=== PATIENT | male | born 1935 | race Caucasian/White ===

== ENCOUNTER 2020-06-22 15:53 | Observation (INO) | payer MEDICARE, OTHER ==
[2020-06-22] MEDS ORDERED: Sodium Chloride 0.9% 1,000 ML ONE (16:06)
[2020-06-22] MEDS ORDERED: Sodium Chloride 0.9% 1,000 ML IV ONE ×2 (16:23→17:07)
--- NOTE | 2020-06-22 16:34 | EDM.PDOC ---
ED HPI GENERAL MEDICAL PROBLEM - General Chief Complaint: General Stated Complaint: DIZZINESS,VOMITTING Time Seen by Provider: 06/22/20 16:21 Source of Information: Reports: Patient, Significant Other History Limitations: Reports: No Limitations - History of Present Illness INITIAL COMMENTS - FREE TEXT/NARRATIVE: Patient presents with dizziness for 2-3 days and vomiting twice today. He hasn't had any water to drink today and had only about 3 cups yesterday. Has been in the tractor a lot lately and not drinking much water. - Related Data Allergies Allergy/AdvReac Type Severity Reaction Status Date / Time atorvastatin Allergy Muscle Verified 06/22/20 16:22 Aches ezetimibe Allergy Muscle Verified 06/22/20 16:22 Aches NSAIDS (Non-Steroidal Allergy LIMITS D/T Verified 06/22/20 16:22 Anti-Inflamma RENAL DISEASE Home Meds: Home Meds Aspirin [Halfprin] 81 mg PO DAILY 04/13/15 [History] Omeprazole 20 mg PO ACBREAKFAST 04/13/15 [History] Ramipril [Altace] 10 mg PO DAILY 04/13/15 [History] Cetirizine [ZyrTEC] 10 mg PO DAILY 01/02/17 [History] Ibuprofen [Advil] 2 - 4 tab PO Q4HR PRN 01/02/17 [History] Isosorbide Mononitrate [Isosorbide Mononitrate ER] 30 mg PO DAILY 01/02/17 [History] Potassium Chloride [Klor-Con M10] 10 meq PO DAILY 01/02/17 [History] Clopidogrel [Plavix] 75 mg PO DAILY 06/22/20 [History] Furosemide [Lasix] 40 mg PO DAILY 06/22/20 [History] Metoprolol Succinate [Toprol XL] 12.5 mg PO DAILY 06/22/20 [History] atorvaSTATin [Lipitor] 80 mg PO DAILY 06/22/20 [History] metOLazone [Metolazone] 2.5 mg PO DAILY 06/22/20 [History] Past Medical History HEENT History: Reports: Cataract Cardiovascular History: Reports: High Cholesterol, Hypertension, Stents Gastrointestinal History: Reports: GERD Musculoskeletal History: Reports: Amputation, Arthritis Other Musculoskeletal History: thumb, pointer finger and middle finger amputated Psychiatric History: Reports: Anxiety - Infectious Disease History Infectious Disease History: Reports: Chicken Pox, Shingles - Past Surgical History Cardiovascular Surgical History: Reports: Coronary Artery Stent GI Surgical History: Reports: Colonoscopy Musculoskeletal Surgical History: Reports: Amputation, Knee Replacement, Other (See Below) Other Musculoskeletal Surgeries/Procedures:: multiple fingers amputated Social & Family History - Family History Family Medical History: No Pertinent Family History HEENT: Reports: Cataract Other HEENT Family History: mother Cardiac: Reports: Heart Failure Other Cardiac Family History: father Musculoskeletal: Reports: Gout Other Musculoskeletal Family History: father Neurological: Reports: CVA, Dementia Other Neurological Family History: father had CVA, mother had dementia - Caffeine Use Caffeine Use: Reports: Coffee, Soda, Tea ED ROS GENERAL - Review of Systems Review Of Systems: See Below Constitutional: Denies: Fever, Chills, Malaise, Weakness HEENT: Denies: Ear Pain, Throat Pain, Vision Change Respiratory: Reports: Shortness of Breath (mild), Cough (mild) Cardiovascular: Reports: Lightheadedness. Denies: Chest Pain, Syncope GI/Abdominal: Reports: Vomiting (just today twice). Denies: Abdominal Pain, Diarrhea : Denies: Dysuria, Flank Pain Musculoskeletal: Reports: No Symptoms Skin: Denies: Cyanosis, Jaundice, Mottled, Pallor, Diaphoresis Neurological: Reports: Dizziness. Denies: Confusion, Headache, Seizure, Syncope, Trouble Speaking, Difficulty Walking Psychiatric: Denies: Agitation, Anxiety, Confusion ED EXAM, GENERAL - Physical Exam Exam: See Below Exam Limited By: No Limitations General Appearance: Alert, WD/WN, No Apparent Distress Eye Exam: Bilateral Eye: EOMI, Normal Inspection, PERRL Ears: Normal External Exam, Hearing Grossly Normal Nose: Normal Inspection, No Blood Throat/Mouth: Normal Inspection, Normal Voice, No Airway Compromise Head: Atraumatic, Normocephalic Neck: Normal Inspection, Full Range of Motion Respiratory/Chest: No Respiratory Distress, No Accessory Muscle Use, Crackles (fine in bilat lungs mid to base). No: Rhonchi, Wheezing, Stridor Cardiovascular: Regular Rate, Rhythm, No Murmur GI/Abdominal: Soft, Non-Tender, No Organomegaly, No Distention Back Exam: Normal Inspection, Full Range of Motion. No: CVA Tenderness (L), CVA Tenderness (R) Extremities: Normal Inspection, Normal Range of Motion Neurological: Alert, Oriented, Normal Cognition, No Motor/Sensory Deficits Psychiatric: Normal Affect, Normal Mood Skin Exam: Warm, Dry, Intact, Normal Color, No Rash Course - Vital Signs Last Recorded V/S: Last Vital Signs Temp 96.8 F L 06/22/20 18:00 Pulse 94 06/22/20 18:45 Resp 19 06/22/20 18:45 BP 100/53 L 06/22/20 18:45 Pulse Ox 94 L 06/22/20 18:45 - Orders/Labs/Meds Orders: Active Orders 24 hr Category Date Time Status Patient Status [ADT] Routine ADT 06/22/20 18:46 Ordered EKG Documentation Completion [RC] ASDIRECTED Care 06/22/20 16:23 Active EKG 12 Lead [EK] Stat Ther 06/22/20 16:22 Ordered Labs: Laboratory Tests 06/22/20 06/22/20 06/22/20 Range/Units 16:45 16:45 16:45 WBC 9.48 (5.00-10.00) 10^3/uL RBC 4.40 L (4.50-6.00) 10^6/uL Hgb 14.2 (13.0-17.0) g/dL Hct 42.9 (40.0-52.0) % MCV 97.5 H D (82.0-92.0) fL MCH 32.3 H (27.0-31.0) pg MCHC 33.1 (32.0-36.0) g/dL RDW 14.1 (11.5-14.5) % Plt Count 182 (150-400) 10^3/uL MPV 9.3 (7.4-10.4) fL Sodium 141 (136-145) mmol/L Potassium 4.9 (3.5-5.1) mmol/L Chloride 104 (98-107) mmol/L Carbon Dioxide 26.0 (21.0-32.0) mmol/L Anion Gap 15.9 H (5-15) mmol/L BUN 41 H (7-18) mg/dL Creatinine 2.47 H (0.51-1.17) mg/dL Est Cr Clr Drug Dosing 23.29 mL/min Estimated GFR (MDRD) 25 mL/min Glucose 140 (70-140) mg/dL Lactic Acid (0.4-2.0) mmol/L Calcium 8.8 (8.7-10.3) mg/dL Total Bilirubin 0.7 (0.2-1.0) mg/dL Direct Bilirubin 0.2 (0.0-0.2) mg/dL Indirect Bilirubin 0.5 mg/dL AST 20 (15-37) U/L ALT 19 (14-63) U/L Alkaline Phosphatase 72 (46-116) U/L B-Natriuretic Peptide (0-100) pg/mL Total Protein 7.4 (6.4-8.2) g/dL Albumin 3.55 (3.40-5.00) g/dL Globulin 3.85 Albumin/Globulin Ratio 0.92 SARS CoV-2 RNA Rapid MORENA (NEGATIVE) 06/22/20 06/22/20 06/22/20 Range/Units 16:45 16:45 18:45 WBC (5.00-10.00) 10^3/uL RBC (4.50-6.00) 10^6/uL Hgb (13.0-17.0) g/dL Hct (40.0-52.0) % MCV (82.0-92.0) fL MCH (27.0-31.0) pg MCHC (32.0-36.0) g/dL RDW (11.5-14.5) % Plt Count (150-400) 10^3/uL MPV (7.4-10.4) fL Sodium (136-145) mmol/L Potassium (3.5-5.1) mmol/L Chloride (98-107) mmol/L Carbon Dioxide (21.0-32.0) mmol/L Anion Gap (5-15) mmol/L BUN (7-18) mg/dL Creatinine (0.51-1.17) mg/dL Est Cr Clr Drug Dosing mL/min Estimated GFR (MDRD) mL/min Glucose (70-140) mg/dL Lactic Acid 1.6 (0.4-2.0) mmol/L Calcium (8.7-10.3) mg/dL Total Bilirubin (0.2-1.0) mg/dL Direct Bilirubin (0.0-0.2) mg/dL Indirect Bilirubin mg/dL AST (15-37) U/L ALT (14-63) U/L Alkaline Phosphatase (46-116) U/L B-Natriuretic Peptide 179 H (0-100) pg/mL Total Protein (6.4-8.2) g/dL Albumin (3.40-5.00) g/dL Globulin Albumin/Globulin Ratio SARS CoV-2 RNA Rapid MORENA Negative (NEGATIVE) Meds: Medications Discontinued Medications Generic Name Dose Route Start Last Admin Trade Name Lindsey PRN Reason Stop Dose Admin Sodium Chloride Confirm 06/22/20 16:06 06/22/20 16:23 Normal Saline Administered 06/22/20 16:07 Not Given Dose 1,000 mls @ as directed .ROUTE .STK-MED ONE Sodium Chloride 1,000 mls @ 999 mls/hr 06/22/20 16:23 06/22/20 16:15 Normal Saline IV 06/22/20 17:23 999 mls/hr .BOLUS ONE Administration Sodium Chloride 1,000 mls @ 999 mls/hr 06/22/20 17:07 06/22/20 17:16 Normal Saline IV 06/22/20 18:07 999 mls/hr .BOLUS ONE Administration - Re-Assessments/Exams Free Text/Narrative Re-Assessment/Exam: 06/22/20 17:09 EKG shows NSR without ST elevation. CXR shows mild interstitial pneumonitis but appears chronic compared to CT two months ago. WBC is normal. BP has been low but improving with IV fluids. Dtr-in-law called with concern that pt's has been showing some signs of dementia and may be over-medicating him. He takes Atenolol and Ramipril. Rec ently he was found to be missing doses frequently, due to 's management of his medication. and now they are concerned about the opposite. 06/22/20 18:39 CBC looks good. BUN is 41, Creatinine 2.47, GFR 25. He is feeling a lot better after the two liters of fluids. We got his medications all verified and it sounds likely that his is giving him metalozone everyday before the Lasix instead of only when he has had 3# weight gain as instructed on the bottle. Also metoprolol has evidently replaced Atenolol recently. Discussed findings with patient and recommend hospitalization. He agrees with this. Discussed case with Dr. Jones who accepted for admission to observation. 06/22/20 18:48 Patient is full code status. 06/22/20 18:54 Discharged from ER in stable condition. BP has improved from 70's and 80's systolic to 100-105. Departure - Departure Time of Disposition: 18:52 Disposition: Refer to Observation Condition: Good Clinical Impression: Dehydration Hypotension Qualifiers: Hypotension type: unspecified hypotension type Qualified Code(s): I95.9 - Hypotension, unspecified Acute renal failure Qualifiers: Acute renal failure type: unspecified Qualified Code(s): N17.9 - Acute kidney failure, unspecified - Discharge Information Referrals: Riki Nieves NP [Primary Care Provider] - Forms: ED Department Discharge Sepsis Event Note (ED) - Evaluation Sepsis Screening Result: No Definite Risk - Focused Exam Vital Signs: Vital Signs Temp Pulse Resp BP Pulse Ox 06/22/20 18:45 94 19 100/53 L 94 L 06/22/20 18:30 65 17 104/61 96 06/22/20 18:16 62 18 99/56 L 92 L 06/22/20 18:00 96.8 F L 62 20 103/58 L 97 06/22/20 17:45 62 13 84/45 L 98 06/22/20 17:40 91 L 06/22/20 17:39 89 L 06/22/20 17:31 61 84/44 L 90 L 06/22/20 17:15 63 12 91/43 L 98 06/22/20 17:02 61 83/45 L 06/22/20 17:00 62 17 75/44 L 95 06/22/20 16:45 64 18 81/48 L 93 L 06/22/20 16:42 65 18 90/49 L 95 06/22/20 16:30 65 14 74/45 L 96 06/22/20 16:00 69 18 86/55 L 96 06/22/20 15:53 96.5 F L 68 18 98/54 L 96 - My Orders Last 24 Hours: My Active Orders 06/22/20 16:22 EKG 12 Lead [EK] Stat 06/22/20 16:23 EKG Documentation Completion [RC] ASDIRECTED 06/22/20 18:46 Patient Status [ADT] Routine - Assessment/Plan Last 24 Hours: My Active Orders 06/22/20 16:22 EKG 12 Lead [EK] Stat 06/22/20 16:23 EKG Documentation Completion [RC] ASDIRECTED 06/22/20 18:46 Patient Status [ADT] Routine
--- NOTE | 2020-06-22 16:56 | CR ---
[id number] RAD/RAD Chest PA And Lateral EXAM: RAD Chest PA And Lateral CLINICAL DATA: CRACKLES AT LUNG BASES COMPARISON: CORRELATION IS MADE WITH THE CAT SCAN OF APRIL 20, 2020 FINDINGS: Interstitial lung disease again is seen Based on the CAT scan of April 20 this year, there would be concern for usual interstitial pneumonitis The cardiac silhouette is enlarged but stable IMPRESSION: NO NEW FINDINGS Jae Reynoso MD 06/22/20 [id number] Thank you for allowing us to participate in the care of your patient.
[2020-06-22 17:07] LABS: ANION GAP 15.9 mmol/L (5-15)
[2020-06-22] MEDS ORDERED: Sodium Chloride 0.9% 10 ML Syringe FLUSH PRN (20:57)
[2020-06-23 08:00] LABS: ANION GAP 14.2 mmol/L (5-15)
--- NOTE | 2020-06-23 10:10 | PCM.HP.2 ---
H&P History of Present Illness - General Date of Service: 06/23/20 Admit Problem/Dx: Admission Diagnosis/Problem Admission Diagnosis/Problem Hypotension Source of Information: Patient, Old Records, Provider, RN, Significant Other History Limitations: Reports: Other (EMR from [facility] not available. ) - Related Data Allergies/Adverse Reactions: Allergies Allergy/AdvReac Type Severity Reaction Status Date / Time atorvastatin Allergy Muscle Verified 06/22/20 23:57 Aches ezetimibe Allergy Muscle Verified 06/22/20 23:57 Aches NSAIDS (Non-Steroidal Allergy LIMITS D/T Verified 06/22/20 23:57 Anti-Inflamma RENAL DISEASE Home Medications: Home Meds Aspirin [Halfprin] 81 mg PO DAILY 04/13/15 [History] Cetirizine [ZyrTEC] 10 mg PO DAILY PRN 01/02/17 [History] Isosorbide Mononitrate [Isosorbide Mononitrate ER] 30 mg PO DAILY 01/02/17 [History] Clopidogrel [Plavix] 75 mg PO DAILY 06/22/20 [History] Metoprolol Succinate [Toprol XL] 12.5 mg PO DAILY 06/22/20 [History] atorvaSTATin [Lipitor] 80 mg PO DAILY 06/22/20 [History] Incruse Ellipta 62.5 Mcg 1 puff INH DAILY 06/23/20 [History] Past Medical History HEENT History: Reports: Cataract, Hard of Hearing Cardiovascular History: Reports: High Cholesterol, Hypertension, Stents Respiratory History: Reports: Sleep Apnea Gastrointestinal History: Reports: GERD Musculoskeletal History: Reports: Amputation, Arthritis Other Musculoskeletal History: thumb, pointer finger and middle finger amputated Psychiatric History: Reports: Anxiety - Infectious Disease History Infectious Disease History: Reports: Chicken Pox, Shingles - Past Surgical History Cardiovascular Surgical History: Reports: Coronary Artery Stent Respiratory Surgical History: Reports: None GI Surgical History: Reports: Colonoscopy Musculoskeletal Surgical History: Reports: Amputation, Knee Replacement, Other (See Below) Other Musculoskeletal Surgeries/Procedures:: multiple fingers amputated Social & Family History - Family History Family Medical History: No Pertinent Family History HEENT: Reports: Cataract Other HEENT Family History: mother Cardiac: Reports: Heart Failure Other Cardiac Family History: father Musculoskeletal: Reports: Gout Other Musculoskeletal Family History: father Neurological: Reports: CVA, Dementia Other Neurological Family History: father had CVA, mother had dementia - Tobacco Use Tobacco Use Status *Q: Never Tobacco User - Caffeine Use Caffeine Use: Reports: Coffee - Alcohol Use Days Per Week of Alcohol Use: 2 Number of Drinks Per Day: 1 Total Drinks Per Week: 2 Date of Last Drink: 06/20/20 - Recreational Drug Use Recreational Drug Use: No H&P Review of Systems - Review of Systems: Review Of Systems: See Below General: Reports: Weight Loss HEENT: Reports: No Symptoms Pulmonary: Denies: Shortness of Breath, Cough, Sputum Cardiovascular: Reports: Dyspnea on Exertion, Edema, Blood Pressure Problem. Denies: Chest Pain, Palpitations, Syncope, Claudication Gastrointestinal: Reports: No Symptoms Genitourinary: Reports: No Symptoms Musculoskeletal: Reports: No Symptoms Skin: Reports: Dryness Psychiatric: Denies: Confusion, Agitation Neurological: Denies: Confusion, Syncope, Weakness Hematologic/Lymphatic: Reports: No Symptoms Immunologic: Reports: No Symptoms Exam - Exam Exam: See Below - Vital Signs Vital Signs: Last Vital Signs Temp 97.1 F 06/23/20 06:24 Pulse 59 L 06/23/20 06:24 Resp 18 06/23/20 06:24 BP 114/65 06/23/20 06:24 Pulse Ox 98 06/23/20 06:24 Weight: 194 lb 9 oz - Exam Quality Assessment: Supplemental Oxygen (Off O2 now, ) General: Alert, Oriented, Cooperative. No: Mild Distress Neck: Supple Lungs: Other Cardiovascular: Regular Rate, Regular Rhythm GI/Abdominal Exam: Normal Bowel Sounds, Soft (Male) Exam: Deferred Back Exam: No: CVA Tenderness (L), CVA Tenderness (R) Extremities: Pedal Edema (lower extremities) Skin: Warm, Dry, Intact Neurological: Cranial Nerves Intact Neuro Extensive - Mental Status: Alert, Oriented x3 Neuro Extensive - Motor, Sensory, Reflexes: CN II-XII Intact Psychiatric: Alert, Normal Affect, Normal Mood - Patient Data Lab Results Last 24 hrs: Laboratory Results - last 24 hr 06/22/20 06/22/20 06/22/20 Range/Units 16:45 16:45 16:45 WBC 9.48 (5.00-10.00) 10^3/uL RBC 4.40 L (4.50-6.00) 10^6/uL Hgb 14.2 (13.0-17.0) g/dL Hct 42.9 (40.0-52.0) % MCV 97.5 H D (82.0-92.0) fL MCH 32.3 H (27.0-31.0) pg MCHC 33.1 (32.0-36.0) g/dL RDW 14.1 (11.5-14.5) % Plt Count 182 (150-400) 10^3/uL MPV 9.3 (7.4-10.4) fL Sodium 141 (136-145) mmol/L Potassium 4.9 (3.5-5.1) mmol/L Chloride 104 (98-107) mmol/L Carbon Dioxide 26.0 (21.0-32.0) mmol/L Anion Gap 15.9 H (5-15) mmol/L BUN 41 H (7-18) mg/dL Creatinine 2.47 H (0.51-1.17) mg/dL Est Cr Clr Drug Dosing 23.29 mL/min Estimated GFR (MDRD) 25 mL/min Glucose 140 (70-140) mg/dL Lactic Acid (0.4-2.0) mmol/L Calcium 8.8 (8.7-10.3) mg/dL Total Bilirubin 0.7 (0.2-1.0) mg/dL Direct Bilirubin 0.2 (0.0-0.2) mg/dL Indirect Bilirubin 0.5 mg/dL AST 20 (15-37) U/L ALT 19 (14-63) U/L Alkaline Phosphatase 72 (46-116) U/L B-Natriuretic Peptide (0-100) pg/mL Total Protein 7.4 (6.4-8.2) g/dL Albumin 3.55 (3.40-5.00) g/dL Globulin 3.85 Albumin/Globulin Ratio 0.92 SARS CoV-2 RNA Rapid MORNEA (NEGATIVE) 06/22/20 06/22/20 06/22/20 Range/Units 16:45 16:45 18:45 WBC (5.00-10.00) 10^3/uL RBC (4.50-6.00) 10^6/uL Hgb (13.0-17.0) g/dL Hct (40.0-52.0) % MCV (82.0-92.0) fL MCH (27.0-31.0) pg MCHC (32.0-36.0) g/dL RDW (11.5-14.5) % Plt Count (150-400) 10^3/uL MPV (7.4-10.4) fL Sodium (136-145) mmol/L Potassium (3.5-5.1) mmol/L Chloride (98-107) mmol/L Carbon Dioxide (21.0-32.0) mmol/L Anion Gap (5-15) mmol/L BUN (7-18) mg/dL Creatinine (0.51-1.17) mg/dL Est Cr Clr Drug Dosing mL/min Estimated GFR (MDRD) mL/min Glucose (70-140) mg/dL Lactic Acid 1.6 (0.4-2.0) mmol/L Calcium (8.7-10.3) mg/dL Total Bilirubin (0.2-1.0) mg/dL Direct Bilirubin (0.0-0.2) mg/dL Indirect Bilirubin mg/dL AST (15-37) U/L ALT (14-63) U/L Alkaline Phosphatase (46-116) U/L B-Natriuretic Peptide 179 H (0-100) pg/mL Total Protein (6.4-8.2) g/dL Albumin (3.40-5.00) g/dL Globulin Albumin/Globulin Ratio SARS CoV-2 RNA Rapid MORENA Negative (NEGATIVE) 06/23/20 Range/Units 07:30 WBC (5.00-10.00) 10^3/uL RBC (4.50-6.00) 10^6/uL Hgb (13.0-17.0) g/dL Hct (40.0-52.0) % MCV (82.0-92.0) fL MCH (27.0-31.0) pg MCHC (32.0-36.0) g/dL RDW (11.5-14.5) % Plt Count (150-400) 10^3/uL MPV (7.4-10.4) fL Sodium 143 (136-145) mmol/L Potassium 4.7 (3.5-5.1) mmol/L Chloride 105 (98-107) mmol/L Carbon Dioxide 28.5 (21.0-32.0) mmol/L Anion Gap 14.2 (5-15) mmol/L BUN 42 H (7-18) mg/dL Creatinine 2.32 H (0.51-1.17) mg/dL Est Cr Clr Drug Dosing 24.79 mL/min Estimated GFR (MDRD) 27 mL/min Glucose 96 (70-140) mg/dL Lactic Acid (0.4-2.0) mmol/L Calcium 8.4 L (8.7-10.3) mg/dL Total Bilirubin (0.2-1.0) mg/dL Direct Bilirubin (0.0-0.2) mg/dL Indirect Bilirubin mg/dL AST (15-37) U/L ALT (14-63) U/L Alkaline Phosphatase (46-116) U/L B-Natriuretic Peptide (0-100) pg/mL Total Protein (6.4-8.2) g/dL Albumin (3.40-5.00) g/dL Globulin Albumin/Globulin Ratio SARS CoV-2 RNA Rapid MORENA (NEGATIVE) Result Diagrams: 06/22/20 16:45 06/24/20 07:35 Sepsis Event Note - Evaluation Sepsis Screening Result: No Definite Risk - Focused Exam Vital Signs: Vital Signs Temp Pulse Resp BP Pulse Ox 06/23/20 06:24 97.1 F 59 L 18 114/65 98 06/23/20 03:00 97.0 F 61 18 112/66 98 06/22/20 23:04 96.7 F L 56 L 20 100/55 L 100 Problem List Initiated/Reviewed/Updated: Yes Orders Last 24hrs: Active Orders 24 hr Category Date Time Status Patient Status [ADT] Routine ADT 06/22/20 18:46 Active Height and Weight [RC] DAILY Care 06/22/20 20:57 Active Intake and Output [RC] 06,14,22 Care 06/22/20 20:58 Active Oxygen Therapy [RC] DAILY Care 06/22/20 20:57 Active Peripheral IV Care [RC] 09,21 Care 06/22/20 21:01 Active Up With Assistance [RC] DAILY Care 06/22/20 20:57 Active VTE/DVT Education [RC] DAILY Care 06/22/20 20:57 Active Vital Signs [RC] 03,07,11,15,19,23 Care 06/22/20 20:57 Active Consult to Case Management/Associate Professor [employer] Forest[employer] [CONS] Cons 06/22/20 20:57 Active Routine Heart Healthy Diet [DIET] Diet 06/23/20 Breakfast Active Sodium Chloride 0.9% [Saline Flush] Med 06/22/20 20:57 Active 10 ml FLUSH Q8HR PRN Peripheral IV Insertion Adult [OM.PC] Routine Oth 06/22/20 20:57 Ordered Saline Lock Insert [OM.PC] Routine Oth 06/22/20 20:57 Ordered Resuscitation Status Routine Resus Stat 06/22/20 20:57 Ordered EKG 12 Lead [EK] Stat Ther 06/22/20 16:22 Ordered Medication Orders Sodium Chloride (Sodium Chloride 0.9% 10 Ml Syringe) 10 ml FLUSH Q8HR PRN PRN Reason: keep vein open Assessment/Plan Comment:: History of present illness Mr Mead is a 85-year-old pleasant gentleman that was admitted into OBS status likely due to med induced SCOTTIE dehydration Reported to the ED complaining of 2-3 of dizziness with dry heaving--hitting he had not been drinking enough water and 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 Only doctors in [facility] in [place], [place]. Although do not have those records with me family/patient reports recent hospitalization approximately 6-weeks ago due to shortness of breath determined to be PVD and had stent placed. Family admits some medication adjustments since this recent hospitalization however some confusion regarding missing pills especially of Metolazone. Patient is to be on Lasix 40 mg p.o. daily along with PRN metaxalone however family highly suspects that the spouse (who has mild dementia) has been given Metolazone on a daily basis. Patient does have history of heart failure and admits to not weighing himself. ED Course/pertinent findings VS: SBP: 70-80's, afebrile HR, 60's, POX 96% BUN/creatinine 41/2.47 (04/27/2020 [facility]: ) Cxr: Interstitial lung disease, appears chronic BNP 180 2 liters isotonic saline Hospital course 06/23/2020; On rounds this morning, patient sitting in chair off of oxygen, no acute distress, family in room, blood pressure improved, no JVD, no shortness of breath, fibrotic crackles without fluid overload, no JVD, 1+ pitting edema lower extremities, tolerating p.o. fluids, IV fluids saline locked throughout the night. Marginal improvement in renal indices--remains ~50% above baseline Primary Hospital problems --SCOTTIE prerenal, acute on chronic due to decreased p.o. intake, medication ind uced Chronic/stable problems CAD, PVD, HTN, HLD. Recent stent lower extremity, ASA, clopidogrel, Statin, HOLD ACEI, metoprolol and diuretics Pulmonary Fibrosis, PPI; Rx to determine if patient taking Incruse GERD, PPI Disposition/overall plan --Hold both Lasix and metaxalone today --Increase p.o. fluids, encourage --Suggest [place] nurse to monitor medication compliance. --ERIC greg Elliott Records on chart today --Educate patient/family on avoiding NSAIDS --Anticpate discharge in a.m. - Mortality Measure Prognosis:: Good
[2020-06-23] MEDS: ATORVASTATIN 80 MG PO SCH (10:53)
[2020-06-23] MEDS: Omeprazole 20 MG Cap.CR - PTOM PO SCH (10:53)
[2020-06-23] MEDS: ISOSORBIDE MONONITRATE 30 MG PO SCH (10:53)
[2020-06-23] MEDS: Clopidogrel 75 MG Tab - PTOM PO SCH (10:56)
[2020-06-23] MEDS: Aspirin 81 MG Tab.EC PO SCH (11:00)
[2020-06-24] MEDS: Omeprazole 20 MG Cap.CR - PTOM PO SCH (06:33)
[2020-06-24 08:07] LABS: ANION GAP 13.9 mmol/L (5-15)
[2020-06-24] MEDS: ISOSORBIDE MONONITRATE 30 MG PO SCH (08:29)
[2020-06-24] MEDS: Clopidogrel 75 MG Tab - PTOM PO SCH (08:29)
[2020-06-24] MEDS: Aspirin 81 MG Tab.EC PO SCH (08:29)
[2020-06-24] MEDS: ATORVASTATIN 80 MG PO SCH (08:29)
[2020-06-24 08:33] VITALS: BP 116/81; PULSE 79
--- NOTE | 2020-06-24 09:52 | PCM.DCSUM1 ---
Discharge Summary - Hospital Course Free Text/Narrative:: Date of admission: 06/22/20 Date of discharge: 06/24/20 Admission diagnoses: # SCOTTIE prerenal, acute on chronic due to decreased p.o. intake, medication induced; improved. Discharge diagnoses: # Coronary artery disease - Cardiac cath with JENNA placed to LAD on 04/22/20 at [facility] in [place], [place]; continue ASA, metoprolol 12.5mg PO BID, plavix 75mg PO daily, Imdur 30mg PO daily. # NSTEMI (type 1) - 04/20/20 (Trop 0.04) # HFpEF - EF 55-60% with grade 1-2 diastolic dysfunction per echo 04/21/20 at [facility]; hold lasix, supplemental potassium until follow-up on 06/26/20. Stopped metolazone at discharge from [facility] due to SCOTTIE, dehydration. # Hypertension - Hold ALPESH inhibitor until follow-up on 06/26/20. # Hyperlipidemia - Continue atorvastatin 80mg PO daily. # Chronic kidney disease stage III. Baseline creatinine 1.3-1.5. # Carotid artery disease - R carotid endartectomy 03/09/18. # Mild dilatation of the aortic root; mild dilatation of the ascending aorta. Ascending aorta measured 3.8-4.0cm by echo on 10/24/16. # Mitral valve prolapse # Interstitial pulmonary fibrosis # Hx of TIA # Diverticulosis # Chronic dyspepsia HPI summary: Mr Mead is a 85-year-old pleasant gentleman that was admitted into OBS status likely due to med induced SCOTTIE dehydration. Reported to the ED complaining of 2-3 of dizziness with dry heaving. 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 Patient was last seen by [facility] providers in February,, had been seen more recently by Dr Ochoa in [place] at [facility]. Recent hospitalization records obtained from [facility] indicate that patient was recently hospitalized April 20-2020 for HFpEF exacerbation with BNP of 1010, elevated troponin of 0.04. Patient was taken to geophysical laboratory director with a JENNA placed to the LAD. Patient had medication changes at that time to include: stopping atenolol and changing this to metoprolol 12.5mg PO daily; aspirin 81mg PO daily, plavix 75mg PO daily, atorvastatin 80mg PO HS, Isosorbide 30mg PO daily, lasix 20mg PO daily (patient was to take 1/2 tablet of 40mg dose which he reportedly had at home) along with potassium supplementation of 10 Meq PO daily, metolazone 2.5mg which was to be taken 30 minutes prior to lasix if he had a 3 pound weight gain in one day or a five pound weight gain in a week, as well as continuing his ALPESH inhibitor of ramipril. Family had reported at time of presentation to [facility] that they suspected confusion regarding medications and current dosages, particularly as related to diuretic dosing which was thought to be Lasix 40 mg daily along with PRN metaxalone,however family highly suspected that the spouse (who has mild dementia) has been given Metolazone on a daily basis. Patient had reported that he had not been weighing himself daily as recommended. ED course: VS: SBP: 70-80's, afebrile HR, 60's, O2 sat 96% Elevation of BUN/creatinine from baseline. BUN 41, creatinine 2.47. (04/27/2020 [facility]: ) CXR: Interstitial lung disease, appears chronic BNP 180, hx of HFpEF 2 liters isotonic saline were given with improvement in blood pressure. Hospital course: 06/23/2020: On rounds patient sitting in chair off of oxygen, no acute distress, family in room, blood pressure improved, no JVD, no shortness of breath, fibrotic crackles without fluid overload, no JVD, 1+ pitting edema lower extremities, tolerating oral fluids, IV fluids saline locked throughout the night. Marginal improvement in renal indices--remained ~50% above baseline. 06/24/20: Patient reports mild exertional SOB, no other complaints. Renal function improved this morning, BUN 41, Creatinine 1.69. Vitals stable BP 116/81, HR 79, T 97F, 94% on room air. Planning for discharge home today with [facility] support to manage medications, monitor weight and vitals. Discharge and follow-up recommendations: - Discharge to Home per self care. [facility] to monitor patient weights, vitals, and manage medications to ensure compliance with current recommended regimen. - New medications at discharge: No new medications. Stop Metolazone. Avoid NS AIDs. Hold lasix, potassium supplement, ALPESH inhibitor until follow-up appointment. - Follow-up in [facility] per myself on June 26. - Discharge Data Discharge Disposition: Home, Self-Care 01 Condition: Good - Referral to Home Health Primary Care Physician: Riki Nieves NP - Patient Summary/Data Consults: Consultations 06/22/20 20:57 Consult to Case Management/Game Breeding Farm Manager [CONS] Routine - Discharge Plan Home Medications: Home Meds Aspirin [Halfprin] 81 mg PO DAILY 04/13/15 [History] Cetirizine [ZyrTEC] 10 mg PO DAILY PRN 01/02/17 [History] Isosorbide Mononitrate [Isosorbide Mononitrate ER] 30 mg PO DAILY 01/02/17 [History] Clopidogrel [Plavix] 75 mg PO DAILY 06/22/20 [History] Metoprolol Succinate [Toprol XL] 12.5 mg PO DAILY 06/22/20 [History] atorvaSTATin [Lipitor] 80 mg PO DAILY 06/22/20 [History] Incruse Ellipta 62.5 Mcg 1 puff INH DAILY 06/23/20 [History] Referrals: Annika Rodriguez, CREATIVE PROJECT MANAGER [Nurse Practitioner] - 06/26/20 1:30 pm (Follow-up on Monday06/26/20 in the afternoon at the [facility]. ) - General Info Date of Service: 06/24/20 Functional Status: Reports: Pain Controlled, Tolerating Diet, Urinating. Denies: New Symptoms - Review of Systems General: Reports: No Symptoms HEENT: Reports: No Symptoms. Denies: Headaches, Sore Throat Pulmonary: Reports: Shortness of Breath (mild with exertion). Denies: Cough, Wheezing Cardiovascular: Reports: Edema (non-pitting edema BLE). Denies: Chest Pain, Palpitations Gastrointestinal: Reports: No Symptoms. Denies: Abdominal Pain, Constipation, Decreased Appetite, Diarrhea Genitourinary: Reports: No Symptoms Musculoskeletal: Reports: No Symptoms Skin: Reports: No Symptoms Neurological: Reports: No Symptoms Psychiatric: Reports: No Symptoms - Patient Data Vitals - Most Recent: Last Vital Signs Temp 97.0 F 06/24/20 06:45 Pulse 79 06/24/20 08:32 Resp 16 06/24/20 06:45 BP 116/81 04/28/21 08:32 Pulse Ox 94 L 06/24/20 08:34 Weight - Most Recent: 195 lb 6 oz I&O - Last 24 hours: Intake & Output 06/23/20 06/24/20 06/24/20 22:59 06:59 14:59 Intake Total 350 100 Output Total 400 900 Balance -50 -800 Lab Results - Last 24 hrs: Laboratory Results - last 24 hr 06/24/20 Range/Units 07:35 Sodium 140 (136-145) mmol/L Potassium 4.6 (3.5-5.1) mmol/L Chloride 104 (98-107) mmol/L Carbon Dioxide 26.7 (21.0-32.0) mmol/L Anion Gap 13.9 (5-15) mmol/L BUN 41 H (7-18) mg/dL Creatinine 1.69 H (0.51-1.17) mg/dL Est Cr Clr Drug Dosing 34.04 mL/min Estimated GFR (MDRD) 39 mL/min Glucose 94 (70-140) mg/dL Calcium 8.2 L (8.7-10.3) mg/dL Med Orders - Current: Current Medications Aspirin (Aspirin 81 Mg Tab.Ec) 81 mg PO DAILY [facility] Last Admin: 06/24/20 08:29 Dose: 81 mg Documented by: Clopidogrel Bisulfate (Clopidogrel 75 Mg Tab - Ptom) 75 mg PO DAILY [facility] Last Admin: 06/24/20 08:29 Dose: 75 mg Documented by: Atorvastatin [ Lipitor] 80 Mg Tablet - Ptom 80 mg PO DAILY [facility] Last Admin: 06/24/20 08:29 Dose: 80 mg Documented by: Isosorbide Mononitrate Er 30 Mg Tablet - Ptom 30 mg PO DAILY [facility] Last Admin: 06/24/20 08:29 Dose: 30 mg Documented by: Omeprazole (Omeprazole 20 Mg Cap.Cr - Ptom) 20 mg PO ACBREAKFAST [facility] Last Admin: 06/24/20 06:33 Dose: 20 mg Documented by: Sodium Chloride (Sodium Chloride 0.9% 10 Ml Syringe) 10 ml FLUSH Q8HR PRN PRN Reason: keep vein open Tiotropium [place] (Tiotropium [place] 4 Gm Inhalation [place] (2.5mcg/1 Dose; 10 Doses)) 0 gm INH DAILY@1999 [facility] Discontinued Medications Sodium Chloride (Normal Saline) Confirm Administered Dose 1,000 mls @ as directed .ROUTE .STK-MED ONE Stop: 06/22/20 16:07 Last Admin: 06/22/20 16:23 Dose: Not Given Documented by: Sodium Chloride (Normal Saline) 1,000 mls @ 999 mls/hr IV .BOLUS ONE Stop: 06/22/20 17:23 Last Admin: 06/22/20 16:15 Dose: 999 mls/hr Documented by: Sodium Chloride (Normal Saline) 1,000 mls @ 999 mls/hr IV .BOLUS ONE Stop: 06/22/20 18:07 Last Admin: 06/22/20 17:16 Dose: 999 mls/hr Documented by: - Exam Quality Assessment: Denies: Supplemental Oxygen General: Reports: Alert, Oriented, Cooperative HEENT: Reports: Pupils Equal, Mucous Membr. Moist/[place] Neck: Reports: Supple, No JVD Lungs: Reports: Clear to Auscultation, Normal Respiratory Effort. Denies: Decreased Breath Sounds, Crackles, Wheezing Cardiovascular: Reports: Regular Rate, Regular Rhythm, No Murmurs GI/Abdominal Exam: Normal Bowel Sounds, Soft, Non-Tender, No Distention (Male) Exam: Deferred Rectal (Males) Exam: Deferred Extremities: Normal Inspection, Normal Range of Motion Skin: Reports: Warm, Dry, Intact Neurological: Reports: No New Focal Deficit, Normal Speech Psy/Mental Status: Reports: Alert, Normal Affect, Normal Mood
[2020-06-24] MEDS ORDERED: Tiotropium Bromide 4 GM Inhalation Spray (2.5mcg/1 dose; 10 doses) INH SCH (20:00)
== END 2020-06-24 10:50 | disposition home or self-care (01) ==
LOC: KA.ED 15:53 → UNDOADMOB 18:46 → KA.MS 18:46 → UNDODISOB 06-24 10:50
PROVIDERS: ADMIT Family Medicine; ATTEND Family Medicine
DX: R42 Dizziness and giddiness (principal); R11.10 Vomiting, unspecified; I95.9 Hypotension, unspecified; E78.00 Pure hypercholesterolemia, unspecified; K21.9 Gastro-esophageal reflux disease without esophagitis; I25.10 Atherosclerotic heart disease of native coronary artery without angina pectoris; I73.9 Peripheral vascular disease, unspecified; E78.5 Hyperlipidemia, unspecified; J84.10 Pulmonary fibrosis, unspecified; I25.2 Old myocardial infarction; K57.30 Diverticulosis of large intestine without perforation or abscess without bleeding; I50.30 Unspecified diastolic (congestive) heart failure; I13.0 Hypertensive heart and chronic kidney disease with heart failure and stage 1 through stage 4 chronic kidney disease, or unspecified chronic kidney disease; Z20.822 Contact with and (suspected) exposure to COVID-19; N18.30 Chronic kidney disease, stage 3 unspecified; Z95.5 Presence of coronary angioplasty implant and graft; Z86.73 Personal history of transient ischemic attack (TIA), and cerebral infarction without residual deficits; Z88.8 Allergy status to other drugs, medicaments and biological substances; Z79.82 Long term (current) use of aspirin; Z98.890 Other specified postprocedural states; Z79.899 Other long term (current) drug therapy
CPT/HCPCS: 36415; 71046; 80048; 80076; 83605; 83880; 85027; 93005; 99284; 99285-25; A9270-GY; G0378; J7030; U0002

== ENCOUNTER 2022-02-23 08:03 | Observation (INO) | payer MEDICARE, OTHER ==
[2022-02-23] MEDS ORDERED: Sodium Chloride 0.9% 10 ML Syringe FLUSH PRN (08:36)
[2022-02-23] MEDS ORDERED: HYDROmorphone 1 MG/ML Syringe IVPUSH ONE (08:52)
[2022-02-23] MEDS ORDERED: Sodium Chloride 0.9% 1,000 ML IV ONE (08:52)
[2022-02-23] MEDS ORDERED: Ondansetron 4 MG/2 ML SDV IVPUSH ONE (08:52)
[2022-02-23 09:23] LABS: ANION GAP 16.5 mmol/L (5-15)
[2022-02-23] MEDS: Sodium Chloride 0.9% 1,000 ML IV SCH (12:18)
[2022-02-23] MEDS ORDERED: HYDROmorphone 1 MG/ML Syringe IVPUSH PRN (17:45)
[2022-02-23 18:07] LABS: ANION GAP 13.1 mmol/L (5-15)
[2022-02-23] MEDS: Metoprolol Succinate 25 MG Tab.ER PO SCH (18:15)
[2022-02-23] MEDS: Heparin Sodium 5,000 Units/ML Vial SUBCUT SCH (18:15)
[2022-02-23 18:17] LABS: PTT,PARTIAL THROMBOPLSTIN TIME 27.9 SEC (22.8-31.4)
[2022-02-24] MEDS: Heparin Sodium 5,000 Units/ML Vial SUBCUT SCH ×3 (01:13→17:55)
[2022-02-24 07:24] LABS: ANION GAP 11.4 mmol/L (5-15)
[2022-02-24] MEDS ORDERED: Pantoprazole 20 MG Tab, Delayed Release PO SCH (07:30)
[2022-02-24] MEDS: INCRUSE ELLIPTA 62.5 MCG INH SCH (08:50)
[2022-02-24] MEDS: Sodium Chloride 0.9% 1,000 ML IV SCH ×2 (08:57→22:40)
[2022-02-24] MEDS ORDERED: Isosorbide Mononitrate 30 MG Tab.ER PO SCH (09:00)
[2022-02-24] MEDS ORDERED: ISOSORBIDE MONONITRATE 30 MG PO SCH (10:46)
[2022-02-24] MEDS ORDERED: PANTOPRAZOLE 20 MG PO SCH (10:48)
[2022-02-24] MEDS: Metoprolol Succinate 25 MG Tab.ER PO SCH (11:02)
[2022-02-24] MEDS: METOPROLOL SUCCINATE 25 MG PO SCH (11:11)
[2022-02-24] MEDS ORDERED: Melatonin 3 MG Tab PO SCH (21:00)
[2022-02-25] MEDS: Heparin Sodium 5,000 Units/ML Vial SUBCUT SCH ×2 (02:28→11:04)
[2022-02-25 07:43] LABS: ANION GAP 8.3 mmol/L (5-15)
[2022-02-25 11:02] VITALS: BP 136/70; PULSE 81
[2022-02-25] MEDS: METOPROLOL SUCCINATE 25 MG PO SCH (11:03)
[2022-02-25] MEDS: INCRUSE ELLIPTA 62.5 MCG INH SCH (11:04)
== END 2022-02-25 12:50 ==
LOC: KA.ED 08:03 → UNDOADMIN 11:11 → KA.MS 11:11 → INTOOBSV 11:13
PROVIDERS: ADMIT Family Medicine; ATTEND Family Medicine
DX: S72.012A Unspecified intracapsular fracture of left femur, initial encounter for closed fracture (principal); J96.01 Acute respiratory failure with hypoxia; I13.0 Hypertensive heart and chronic kidney disease with heart failure and stage 1 through stage 4 chronic kidney disease, or unspecified chronic kidney disease; N18.31 Chronic kidney disease, stage 3a; I50.9 Heart failure, unspecified; J84.10 Pulmonary fibrosis, unspecified; I48.91 Unspecified atrial fibrillation; M62.82 Rhabdomyolysis; N17.9 Acute kidney failure, unspecified; E87.20 Acidosis, unspecified; E80.6 Other disorders of bilirubin metabolism; D69.6 Thrombocytopenia, unspecified; G31.84 Mild cognitive impairment of uncertain or unknown etiology; K21.9 Gastro-esophageal reflux disease without esophagitis; E78.5 Hyperlipidemia, unspecified; F32.A Depression, unspecified; M19.90 Unspecified osteoarthritis, unspecified site; I25.10 Atherosclerotic heart disease of native coronary artery without angina pectoris; I73.9 Peripheral vascular disease, unspecified; F41.9 Anxiety disorder, unspecified; K80.20 Calculus of gallbladder without cholecystitis without obstruction; Z86.73 Personal history of transient ischemic attack (TIA), and cerebral infarction without residual deficits; Z79.899 Other long term (current) drug therapy; Z79.82 Long term (current) use of aspirin; Z88.6 Allergy status to analgesic agent; Z95.5 Presence of coronary angioplasty implant and graft; Z96.659 Presence of unspecified artificial knee joint; Z88.8 Allergy status to other drugs, medicaments and biological substances
CPT/HCPCS: 36415; 51702; 70450; 71045; 73502; 74176; 80053; 81001; 82550; 83605; 83735; 83880; 84443; 84484; 84550; 85025; 85610; 85730; 93005; 96361; 96374; 96375; 99285; A9270; J1170; J1644; J2405; J7030; 96376; G0378

== ENCOUNTER 2022-03-16 20:15 | Inpatient (IN) | payer MEDICARE, OTHER ==
[2022-03-16] MEDS ORDERED: Sodium Chloride 0.9% 1,000 ML ONE (20:42)
[2022-03-16] MEDS ORDERED: Sodium Chloride 0.9% 1,000 ML IV ONE (20:51)
[2022-03-16] MEDS ORDERED: Sodium Chloride 0.9% 10 ML Syringe FLUSH PRN (20:51)
[2022-03-16 21:14] LABS: ANION GAP 12.3 mmol/L (5-15); CHLORIDE,CL 100 mmol/L (98-107); SODIUM,NA 135 mmol/L (136-145)
[2022-03-16] MEDS ORDERED: Piperacillin/Tazobactam 4.5 GM in Sodium Chloride 0.9% 100 ML IV ONE (21:28)
[2022-03-16 21:30] LABS: ESTIMATED GFR 61 mL/min (>=60)
[2022-03-16] MEDS: Sodium Chloride 0.9% 1,000 ML IV SCH (21:45)
[2022-03-16 22:04] LABS: RESPIRATORY SYNCYTIAL VIR NAA NEGATIVE (NEGATIVE)
[2022-03-16 22:06] LABS: CORONAVIRUS COVID-19 NAA NEGATIVE (NEGATIVE)
[2022-03-16] MEDS ORDERED: Acetaminophen 325 MG Tab PO PRN (22:19)
[2022-03-16] MEDS ORDERED: Ondansetron 4 MG Tab.DIS PO PRN (22:19)
[2022-03-16] MEDS ORDERED: Albuterol/Ipratropium 3.0-0.5 MG/3 ML Neb Soln NEB PRN (22:21)
[2022-03-17] MEDS: Piperacillin/Tazobactam 4.5 GM in Sodium Chloride 0.9% 100 ML IV SCH ×3 (06:03→23:49)
[2022-03-17 07:36] LABS: ANION GAP 10.1 mmol/L (5-15)
[2022-03-17] MEDS: Sodium Chloride 0.9% 1,000 ML IV SCH (09:36)
[2022-03-17] MEDS ORDERED: Docusate Sodium 100 MG Cap PO PRN (10:17)
[2022-03-17] MEDS ORDERED: Albuterol 8 GM Inhaler INH PRN (10:17)
[2022-03-17] MEDS ORDERED: Acetaminophen 500 MG Tab PO PRN (10:17)
[2022-03-17] MEDS: Isosorbide Mononitrate 30 MG Tab.ER PO SCH (10:42)
[2022-03-17] MEDS: Tiotropium Bromide 4 GM Inhalation Spray (2.5mcg/1 dose; 10 doses) INH SCH (10:54)
[2022-03-17] MEDS: Apixaban 5 MG Tab PO SCH ×2 (11:18→20:42)
[2022-03-17] MEDS: Clopidogrel 75 MG Tab PO SCH (11:18)
[2022-03-17] MEDS: atorvaSTATin 40 MG Tab PO SCH (20:43)
[2022-03-18] MEDS: Piperacillin/Tazobactam 4.5 GM in Sodium Chloride 0.9% 100 ML IV SCH ×3 (06:27→22:11)
[2022-03-18] MEDS ORDERED: Furosemide 40 MG/4 ML VIAL IVPUSH ONE ×2 (08:19→15:00)
[2022-03-18] MEDS: Pantoprazole 20 MG Tab, Delayed Release PO SCH (08:36)
[2022-03-18] MEDS: Apixaban 5 MG Tab PO SCH ×2 (08:36→21:43)
[2022-03-18] MEDS: Clopidogrel 75 MG Tab PO SCH (08:36)
[2022-03-18] MEDS: Tiotropium Bromide 4 GM Inhalation Spray (2.5mcg/1 dose; 10 doses) INH SCH (09:32)
[2022-03-18] MEDS: Metoprolol Succinate 50 MG Tab.ER PO SCH ×3 (11:39→21:42)
[2022-03-18] MEDS: Isosorbide Mononitrate 30 MG Tab.ER PO SCH (12:09)
[2022-03-18] MEDS: atorvaSTATin 40 MG Tab PO SCH (21:43)
[2022-03-19] MEDS: Piperacillin/Tazobactam 4.5 GM in Sodium Chloride 0.9% 100 ML IV SCH ×4 (06:22→22:31)
[2022-03-19] MEDS: Apixaban 5 MG Tab PO SCH ×2 (08:50→21:46)
[2022-03-19] MEDS: Clopidogrel 75 MG Tab PO SCH (08:50)
[2022-03-19] MEDS: Metoprolol Succinate 50 MG Tab.ER PO SCH (08:52)
[2022-03-19] MEDS: Pantoprazole 20 MG Tab, Delayed Release PO SCH (08:52)
[2022-03-19] MEDS: Isosorbide Mononitrate 30 MG Tab.ER PO SCH (08:52)
[2022-03-19] MEDS: Tiotropium Bromide 4 GM Inhalation Spray (2.5mcg/1 dose; 10 doses) INH SCH (08:56)
[2022-03-19] MEDS ORDERED: Sodium Chloride 0.9% 100 ML IV SCH (21:15)
[2022-03-19] MEDS: atorvaSTATin 40 MG Tab PO SCH (21:46)
[2022-03-20] MEDS: Piperacillin/Tazobactam 4.5 GM in Sodium Chloride 0.9% 100 ML IV SCH (05:59)
[2022-03-20] MEDS: Apixaban 5 MG Tab PO SCH (08:06)
[2022-03-20] MEDS: Clopidogrel 75 MG Tab PO SCH (08:06)
[2022-03-20] MEDS: Pantoprazole 20 MG Tab, Delayed Release PO SCH (08:06)
[2022-03-20] MEDS: Tiotropium Bromide 4 GM Inhalation Spray (2.5mcg/1 dose; 10 doses) INH SCH (08:50)
[2022-03-20] MEDS: Isosorbide Mononitrate 30 MG Tab.ER PO SCH (08:50)
[2022-03-20 12:04] VITALS: BP 109/64; PULSE 71
== END 2022-03-20 13:08 | DRG 194 ==
LOC: KA.ED 20:15 → KA.MS 22:17 → UNDOADMIN 22:20
PROVIDERS: ADMIT Physician Assistant Medical; ATTEND Nurse Practitioner Family
DX: J18.9 Pneumonia, unspecified organism (principal); I13.0 Hypertensive heart and chronic kidney disease with heart failure and stage 1 through stage 4 chronic kidney disease, or unspecified chronic kidney disease; I50.32 Chronic diastolic (congestive) heart failure; I25.10 Atherosclerotic heart disease of native coronary artery without angina pectoris; E78.5 Hyperlipidemia, unspecified; J84.10 Pulmonary fibrosis, unspecified; N18.30 Chronic kidney disease, stage 3 unspecified; Z66 Do not resuscitate; I95.9 Hypotension, unspecified; R33.9 Retention of urine, unspecified; H91.90 Unspecified hearing loss, unspecified ear; I48.91 Unspecified atrial fibrillation; E78.00 Pure hypercholesterolemia, unspecified; J44.9 Chronic obstructive pulmonary disease, unspecified; M19.90 Unspecified osteoarthritis, unspecified site; F41.9 Anxiety disorder, unspecified; Z96.642 Presence of left artificial hip joint; Z96.659 Presence of unspecified artificial knee joint; Z20.822 Contact with and (suspected) exposure to COVID-19; E88.09 Other disorders of plasma-protein metabolism, not elsewhere classified; F32.A Depression, unspecified; I73.9 Peripheral vascular disease, unspecified; Z88.6 Allergy status to analgesic agent; Z88.8 Allergy status to other drugs, medicaments and biological substances; Z89.029 Acquired absence of unspecified finger(s); Z86.73 Personal history of transient ischemic attack (TIA), and cerebral infarction without residual deficits; Z86.19 Personal history of other infectious and parasitic diseases; Z79.02 Long term (current) use of antithrombotics/antiplatelets; Z95.5 Presence of coronary angioplasty implant and graft; Z79.899 Other long term (current) drug therapy; Z79.01 Long term (current) use of anticoagulants
CPT/HCPCS: 0241U; 36415; 51702; 51798; 71045; 80048; 80053; 80202; 81001; 83605; 83880; 84484; 85025; 86140; 87040; 93005; 93010; 94640; 96361; 96365; 99284; 99285-25; A9270-GY; J1940; J2543; J3370; J7030; J7050; J7620-GY

== ENCOUNTER 2022-03-26 02:45 | Inpatient (IN) | payer MEDICARE, OTHER ==
[2022-03-26 03:23] LABS: ANION GAP 16.5 mmol/L (5-15)
[2022-03-26] MEDS ORDERED: Sodium Chloride 0.9% 1,000 ML IV ONE (03:52)
[2022-03-26] MEDS ORDERED: Cefepime 2 GM Vial IVPUSH ONE (03:54)
[2022-03-26 03:58] LABS: BASE EXCESS ARTERIAL -1 mmol/L (-2-3); BICARBONATE,ARTERIAL 20.9 mmol/L (22-26); O2 DELIVERY DEVICE NON REBR MASK; O2 SATURATION ARTERIAL 90 % (95-98); PCO2 ARTERIAL 26 mmHG (35-45); PO2 ARTERIAL 51 mmHG (80-105)
[2022-03-26 04:41] LABS: RESPIRATORY SYNCYTIAL VIR NAA NEGATIVE (NEGATIVE)
[2022-03-26 04:42] LABS: CORONAVIRUS COVID-19 NAA NEGATIVE (NEGATIVE)
[2022-03-26] MEDS ORDERED: Vancomycin 2 GM in Sodium Chloride 0.9% 500 ML IV ONE (06:00)
[2022-03-26 08:15] LABS: ANION GAP 13.1 mmol/L (5-15)
[2022-03-26] MEDS ORDERED: Loperamide 2 MG Cap PO PRN (11:32)
[2022-03-26] MEDS ORDERED: Acetaminophen/HYDROcodone 325-5 MG Tab PO PRN (11:32)
[2022-03-26] MEDS ORDERED: Acetaminophen 500 MG Tab PO PRN (11:32)
[2022-03-26] MEDS ORDERED: Metolazone 2.5 MG Tab PO PRN (11:32)
[2022-03-26] MEDS ORDERED: Albuterol 8 GM Inhaler INH PRN (11:32)
[2022-03-26] MEDS: Furosemide 20 MG Tab PO SCH (12:30)
[2022-03-26] MEDS: Cefepime 2 GM in Sodium Chloride 0.9% 50 ML IV SCH (16:46)
[2022-03-26] MEDS ORDERED: Cefepime 1 GM in Sodium Chloride 0.9% 50 ML IV SCH (18:00)
[2022-03-26] MEDS: atorvaSTATin 40 MG Tab PO SCH (20:38)
[2022-03-26] MEDS: Docusate Sodium 100 MG Cap PO SCH (20:38)
[2022-03-26] MEDS: Apixaban 5 MG Tab PO SCH (20:38)
[2022-03-27] MEDS: Cefepime 2 GM in Sodium Chloride 0.9% 50 ML IV SCH ×2 (04:28→15:45)
[2022-03-27] MEDS: Sodium Chloride 0.9% 100 ML IV SCH (04:28)
[2022-03-27] MEDS: Pantoprazole 20 MG Tab, Delayed Release PO SCH ×2 (05:50→06:30)
[2022-03-27 07:49] LABS: ANION GAP 9.7 mmol/L (5-15)
[2022-03-27] MEDS: Tiotropium Bromide 4 GM Inhalation Spray (2.5mcg/1 dose; 10 doses) INH SCH (08:16)
[2022-03-27] MEDS: Clopidogrel 75 MG Tab PO SCH (08:22)
[2022-03-27] MEDS: Potassium Chloride 10 MEQ Tab.ER PO SCH (08:22)
[2022-03-27] MEDS: Docusate Sodium 100 MG Cap PO SCH ×2 (08:22→20:48)
[2022-03-27] MEDS: Cholecalciferol (Vitamin D3) 25 MCG Tab PO SCH (08:22)
[2022-03-27] MEDS: Apixaban 5 MG Tab PO SCH ×2 (08:23→20:47)
[2022-03-27] MEDS: Furosemide 20 MG Tab PO SCH (08:23)
[2022-03-27] MEDS: Metoprolol Succinate 25 MG Tab.ER PO SCH (08:27)
[2022-03-27] MEDS: Isosorbide Mononitrate 30 MG Tab.ER PO SCH (08:29)
[2022-03-27] MEDS: atorvaSTATin 40 MG Tab PO SCH (20:47)
[2022-03-28] MEDS: Cefepime 2 GM in Sodium Chloride 0.9% 50 ML IV SCH (04:31)
[2022-03-28] MEDS: Sodium Chloride 0.9% 100 ML IV SCH (04:32)
[2022-03-28] MEDS: Pantoprazole 20 MG Tab, Delayed Release PO SCH ×2 (05:55→06:30)
[2022-03-28 07:37] LABS: ANION GAP 11.8 mmol/L (5-15)
[2022-03-28] MEDS: Cholecalciferol (Vitamin D3) 25 MCG Tab PO SCH (08:09)
[2022-03-28] MEDS: Apixaban 5 MG Tab PO SCH (08:09)
[2022-03-28] MEDS: Potassium Chloride 10 MEQ Tab.ER PO SCH (08:09)
[2022-03-28] MEDS: Furosemide 20 MG Tab PO SCH (08:09)
[2022-03-28] MEDS: Isosorbide Mononitrate 30 MG Tab.ER PO SCH (08:09)
[2022-03-28] MEDS: Docusate Sodium 100 MG Cap PO SCH (08:09)
[2022-03-28] MEDS: Clopidogrel 75 MG Tab PO SCH (08:09)
[2022-03-28] MEDS: Metoprolol Succinate 25 MG Tab.ER PO SCH (08:10)
[2022-03-28] MEDS: Tiotropium Bromide 4 GM Inhalation Spray (2.5mcg/1 dose; 10 doses) INH SCH (09:41)
[2022-03-28 11:21] VITALS: BP 110/56; PULSE 87
[2022-03-29] MEDS ORDERED: Furosemide 40 MG Tab PO SCH (09:00)
== END 2022-03-28 10:40 | DRG 178 ==
LOC: KA.ED 02:45 → KA.MS 05:24 → UNDOADMIN 05:30 → KA.MS 05:30
PROVIDERS: ADMIT Internal Medicine; ATTEND Internal Medicine
DX: J69.0 Pneumonitis due to inhalation of food and vomit (principal); E87.20 Acidosis, unspecified; E86.0 Dehydration; R00.0 Tachycardia, unspecified; R06.82 Tachypnea, not elsewhere classified; Z99.81 Dependence on supplemental oxygen; I50.32 Chronic diastolic (congestive) heart failure; I12.9 Hypertensive chronic kidney disease with stage 1 through stage 4 chronic kidney disease, or unspecified chronic kidney disease; N18.30 Chronic kidney disease, stage 3 unspecified; R33.9 Retention of urine, unspecified; I25.10 Atherosclerotic heart disease of native coronary artery without angina pectoris; Z66 Do not resuscitate; Z20.822 Contact with and (suspected) exposure to COVID-19; I11.0 Hypertensive heart disease with heart failure; Z79.02 Long term (current) use of antithrombotics/antiplatelets; J44.9 Chronic obstructive pulmonary disease, unspecified; I48.91 Unspecified atrial fibrillation; E78.5 Hyperlipidemia, unspecified; K21.9 Gastro-esophageal reflux disease without esophagitis; R06.89 Other abnormalities of breathing; R09.02 Hypoxemia; H91.90 Unspecified hearing loss, unspecified ear; E78.00 Pure hypercholesterolemia, unspecified; F41.9 Anxiety disorder, unspecified; Z96.642 Presence of left artificial hip joint; Z96.659 Presence of unspecified artificial knee joint; Z79.899 Other long term (current) drug therapy; Z95.5 Presence of coronary angioplasty implant and graft; Z86.73 Personal history of transient ischemic attack (TIA), and cerebral infarction without residual deficits; Z79.01 Long term (current) use of anticoagulants
CPT/HCPCS: 0241U; 36415; 36600; 51702; 71045; 80048; 80053; 80202; 81001; 82803; 83605; 83880; 84145; 85025; 87040; 96361; 96374; 99223; 99285-25; A9270-GY; J0692; J3370; J7030; J7040; J7050

== ENCOUNTER 2022-03-30 08:38 | Emergency (ER) | payer MEDICARE, OTHER ==
[2022-03-30 09:36] LABS: ANION GAP 11.7 mmol/L (5-15); CHLORIDE,CL 104 mmol/L (98-107); SODIUM,NA 141 mmol/L (136-145)
[2022-03-30 09:43] LABS: ESTIMATED GFR 77 mL/min (>=60)
[2022-03-30] MEDS: Metolazone 2.5 MG Tab PO ONE (10:25)
[2022-03-30] MEDS: Furosemide 40 MG/4 ML VIAL IVPUSH ONE (10:25)
[2022-03-30 14:18] VITALS: BP 107/77; PULSE 87
== END 2022-03-30 13:00 | disposition home or self-care (01) ==
LOC: KA.ED 08:38
DX: R09.02 Hypoxemia (principal); R06.02 Shortness of breath; I48.91 Unspecified atrial fibrillation; E78.00 Pure hypercholesterolemia, unspecified; I13.0 Hypertensive heart and chronic kidney disease with heart failure and stage 1 through stage 4 chronic kidney disease, or unspecified chronic kidney disease; N18.9 Chronic kidney disease, unspecified; I50.9 Heart failure, unspecified; J44.9 Chronic obstructive pulmonary disease, unspecified; Z88.8 Allergy status to other drugs, medicaments and biological substances; Z79.02 Long term (current) use of antithrombotics/antiplatelets; Z79.01 Long term (current) use of anticoagulants; Z95.1 Presence of aortocoronary bypass graft; Z86.73 Personal history of transient ischemic attack (TIA), and cerebral infarction without residual deficits; Z79.899 Other long term (current) drug therapy
CPT/HCPCS: 36415; 71045; 80053; 83880; 84484; 85025; 87040; 93010; 96374; 99284; 99285-25; A9270-GY; J1940

== ENCOUNTER 2022-07-17 16:10 | Emergency (ER) | payer MEDICARE, OTHER ==
[2022-07-17] MEDS: Sodium Chloride 0.9% 10 ML Syringe FLUSH PRN ×2 (16:30→17:46)
[2022-07-17 16:33] LABS: BASOPHILS ABSOLUTE AUTO 0.01 10^3/uL (0.00-0.10); BASOPHILS PERCENT AUTO 0.1 % (0.0-1.0); EOSINOPHILS ABSOLUTE AUTO 0.01 10^3/uL (0.10-0.30); EOSINOPHILS PERCENT AUTO 0.1 % (1.0-3.0); HEMATOCRIT 38.9 % (40.0-52.0); HEMOGLOBIN 12.7 g/dL (13.0-17.0); IMMATURE GRAN ABSOLUTE AUTO 0.04 10^3/uL (0.00-0.50); IMMATURE GRAN PERCENT AUTO 0.3 % (0.0-5.0); LYMPHOCYTES ABSOLUTE AUTO 1.07 10^3/uL (1.00-4.00); LYMPHOCYTES PERCENT AUTO 8.4 % (20.0-40.0); MEAN CORPUSCULAR HEMOGLOBIN 31.3 pg (27.0-31.0); MEAN CORPUSCULAR HGB CONC 32.6 g/dL (32.0-36.0); MEAN CORPUSCULAR VOLUME 95.8 fL (82.0-92.0); MEAN PLATELET VOLUME 8.6 fL (7.4-10.4); MONOCYTES ABSOLUTE AUTO 0.97 10^3/uL (0.10-0.80); MONOCYTES PERCENT AUTO 7.6 % (2.0-8.0); NEUTROPHILS ABSOLUTE AUTO 10.64 10^3/uL (2.50-7.00); NEUTROPHILS PERCENT AUTO 83.5 % (50.0-70.0); PLATELET COUNT,PLT 271 10^3/uL (150-400); RED BLOOD CELL COUNT 4.06 10^6/uL (4.50-6.00); RED CELL DISTRIBUTION WIDTH 15.7 % (11.5-14.5); WHITE BLOOD CELL COUNT,WBC 12.74 10^3/uL (5.00-10.00)
[2022-07-17 16:39] VITALS: BP 129/75; PULSE 104
[2022-07-17 16:50] LABS: ALBUMIN 2.27 g/dL (3.40-5.00); ANION GAP 12.3 mmol/L (5-15); BILIRUBIN TOTAL 0.7 mg/dL (0.2-1.0); CARBON DIOXIDE,CO2 31.4 mmol/L (21.0-32.0); CREATININE 1.08 mg/dL (0.51-1.17); EST CRCL DRUG DOSING (CG) 51.32 mL/min; POTASSIUM,K 3.7 mmol/L (3.5-5.1); PROTEIN TOTAL,TP 8.5 g/dL (6.4-8.2)
[2022-07-17] MEDS ORDERED: Furosemide 40 MG/4 ML VIAL IVPUSH ONE (17:37)
== END 2022-07-17 18:30 ==
LOC: KA.ED 16:10
DX: R07.9 Chest pain, unspecified (principal); R63.0 Anorexia; I25.10 Atherosclerotic heart disease of native coronary artery without angina pectoris; I13.0 Hypertensive heart and chronic kidney disease with heart failure and stage 1 through stage 4 chronic kidney disease, or unspecified chronic kidney disease; N18.30 Chronic kidney disease, stage 3 unspecified; I50.9 Heart failure, unspecified; K21.9 Gastro-esophageal reflux disease without esophagitis; J44.9 Chronic obstructive pulmonary disease, unspecified; Z86.73 Personal history of transient ischemic attack (TIA), and cerebral infarction without residual deficits; Z88.8 Allergy status to other drugs, medicaments and biological substances; Z79.02 Long term (current) use of antithrombotics/antiplatelets; Z79.899 Other long term (current) drug therapy
CPT/HCPCS: 36415; 71045; 80053; 83880; 84484; 85025; 93010; 96374; 99284; 99285-25; J1940; J3490